=== PATIENT | female | born 1980 | race Caucasian/White ===

== ENCOUNTER 2017-11-26 08:50 | Inpatient (IN) | payer OTHER ==
[2017-11-26] VITALS (10 sets, daily range): BP systolic 135–154; BP diastolic 68–94; PULSE 83–109; RESP 18–26; TEMP 97.5–100.1; O2SAT 94–98
[~2017-11-26] VITALS: Ht 177.8 cm; Wt 108.7 kg
[~2017-11-26 08:50] MED LIST: GLUCTAB OR; LORTA5 PO; MACR100C PO; NOVO7030P2 SQ; POTA1080 PO; TUMS500C PO; [UNRECOGNIZED DRUG - CODE]
[2017-11-26] MEDS ORDERED: [UNRECOGNIZED DRUG - MIXTURE] ×2 (09:10)
[2017-11-26] MEDS ORDERED: RESP: ALBUTEROL 2.5 MG/IPRATROPIUM 0.5 MG NEB (SCH) NEB ONE (09:30)
--- NOTE | 2017-11-26 09:31 | PD ---
HPI Chief Complaint: Respiratory Symptoms Time Seen by Provider: 09:06 Travel History International Travel<30 days: No Contact w/Intl Traveler<30days: No Traveled to known affect area: No History of Present Illness HPI This 37-year-old female is complaining of cough and shortness of breath. She says the cough started as a mild smoker's type cough. It has gotten progressively worse and is now a hacking cough that is hard to stop. She has had fever. She never smoked. She has no history of asthma. She has a history of type 1 diabetes since the age of 28. 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 She is on BCOP, He has been on chemotherapy for the last 2 years. A month ago she developed pneumonia. She had an x-ray done at [facility] and then was treated at [facility]. She was on Zithromax and Levaquin. She has been told that she has some disease in her lung on the left side. Her last chemotherapy was last Sunday PFS Past Medical History Diabetes: Yes (Type 1) Patient Takes Glucophage: No Diminished Hearing: No Hypertension: No Thyroid Disease: Yes (NO MEDS AT THIS TIME) Tetanus Vaccination: Unknown ?: Not : 2 Para: 0 Miscarriage: 1 : 0 Dilation and Curettage (D&C): Yes (11/12) Past Surgical History Gynecologic Surgery: Yes (ectopic pregnacy removed with partial tube removed) Hysterectomy: Yes Pacemaker: No Other Surgery: Yes (LAPROSCOPIC 11/12 - LEFT BREAST LUMPECTOMY D/T 2015) Social History Alcohol Use: No Tobacco Use: No Substance Use: No Allergies-Medications (Allergen,Severity, Reaction): Coded Allergies: Sulfa (Sulfonamide Antibiotics) (Unverified Allergy, Severe, 11/26/17) cefepime (Unverified Allergy, Severe, 11/26/17) ceftaroline fosamil (Unverified Allergy, Severe, 11/26/17) ciprofloxacin (Unverified Allergy, Severe, 11/26/17) fentanyl (Verified Allergy, Severe, 11/26/17) penicillin G (Unverified Allergy, Severe, ANAPH., 11/26/17) Reported Meds & Prescriptions Reported Meds & Active Scripts Active Reported [[employer]] DIRECTED Review of Systems General / Constitutional: Positive: Fever Eyes: No: Diploplia, Blurred Vision HENT: No: Headaches, Vertigo Cardiovascular: No: Chest Pain or Discomfort, Palpitations Respiratory: Positive: Cough, Shortness of Breath Gastrointestinal: No: Nausea, Vomiting Genitourinary: No: Frequency, Dysuria Musculoskeletal: No: Myalgias Skin: No Rash, No Itching Neurologic: No: Weakness Psychiatric: No: Anxiety Endocrine: No: Heat Intolerance Hematologic/Lymphatic: No: Easy Bruising Physical Exam Narrative GENERAL: Well-developed female. She does have a harsh hacking cough SKIN: Focused skin assessment warm/dry. HEAD: Atraumatic. Normocephalic. EYES: Pupils equal and round. No scleral icterus. No injection or drainage. ENT: No nasal bleeding or discharge. Mucous membranes pink and moist. NECK: Trachea midline. No JVD. CARDIOVASCULAR: Regular rate and rhythm. No murmur appreciated. RESPIRATORY: accessory muscle use. There are scattered rhonchi Breath sounds equal bilaterally. GASTROINTESTINAL: Abdomen soft, non-tender, nondistended. Hepatic and splenic margins not palpable. MUSCULOSKELETAL: No obvious deformities. No clubbing. No cyanosis. No edema. NEUROLOGICAL: Awake and alert. No obvious cranial nerve deficits. Motor grossly within normal limits. Normal speech. PSYCHIATRIC: Appropriate mood and affect; insight and judgment normal. Data Data Last Documented VS Vital Signs Date Time Temp Pulse Resp B/P (MAP) Pulse Ox O2 Delivery O2 Flow Rate FiO2 11/26/17 09:44 24 96 Nasal Cannula 2.00 11/26/17 09:12 98.8 109 Orders Orders Sepsis Workup Initiated (11/26/17 ) Complete Blood Count With Diff (11/26/17 09:25) Comprehensive Metabolic Panel (11/26/17 09:25) Lactic Acid Sepsis Protocol (11/26/17 09:25) Urinalysis - C+S If Indicated (11/26/17 09:25) Influenzae A/B Antigen (11/26/17 09:25) Blood Culture (11/26/17 09:25) Chest, Single Ap (11/26/17 09:25) Blood Glucose (11/26/17 09:25) Ecg Monitoring (11/26/17 09:25) Iv Access Insert/Monitor (11/26/17 09:25) Oximetry (11/26/17 09:25) Oxygen Administration (11/26/17 09:25) Albuterol-Ipratropium Neb (Duoneb Neb) (11/26/17 09:30) Urine Culture (11/26/17 10:00) Sodium Chlor 0.9% 1000 Ml Inj (Ns 1000 M (11/26/17 10:45) Levofloxacin 750 Mg Premix Inj (Levaquin (11/26/17 10:45) Ct Thorax/ Chest W Iv Contrast (11/26/17 10:48) Iohexol 350 Inj (Omnipaque 350 Inj) (11/26/17 11:12) Labs Laboratory Tests Test 11/26/17 09:35 11/26/17 10:00 White Blood Count 5.4 TH/MM3 Red Blood Count 4.49 MIL/MM3 Hemoglobin 13.1 GM/DL Hematocrit 38.3 % Mean Corpuscular Volume 85.3 FL Mean Corpuscular Hemoglobin 29.2 PG Mean Corpuscular Hemoglobin Concent 34.2 % Red Cell Distribution Width 12.7 % Platelet Count 236 TH/MM3 Mean Platelet Volume 7.7 FL Neutrophils (%) (Auto) 68.4 % Lymphocytes (%) (Auto) 24.2 % Monocytes (%) (Auto) 6.1 % Eosinophils (%) (Auto) 0.8 % Basophils (%) (Auto) 0.5 % Neutrophils # (Auto) 3.8 TH/MM3 Lymphocytes # (Auto) 1.3 TH/MM3 Monocytes # (Auto) 0.3 TH/MM3 Eosinophils # (Auto) 0.0 TH/MM3 Basophils # (Auto) 0.0 TH/MM3 CBC Comment DIFF FINAL Differential Comment Blood Urea Nitrogen 6 MG/DL Creatinine 0.85 MG/DL Random Glucose 254 MG/DL Total Protein 7.7 GM/DL Albumin 3.3 GM/DL Calcium Level 8.7 MG/DL Alkaline Phosphatase 126 U/L Aspartate Amino Transf (AST/SGOT) 40 U/L Alanine Aminotransferase (ALT/SGPT) 57 U/L Total Bilirubin 0.6 MG/DL Sodium Level 133 MEQ/L Potassium Level 3.6 MEQ/L Chloride Level 99 MEQ/L Carbon Dioxide Level 23.4 MEQ/L Anion Gap 11 MEQ/L Estimat Glomerular Filtration Rate 75 ML/MIN Lactic Acid Level 1.9 mmol/L Urine Collection Type CATH Urine Color STRAW Urine Turbidity CLEAR Urine pH 6.5 Urine Specific [place] 1.006 Urine Protein NEG mg/dL Urine Glucose (UA) 250 mg/dL Urine Ketones 15 mg/dL Urine Occult Blood NEG Urine Nitrite NEG Urine Bilirubin NEG Urine Leukocyte Esterase SMALL Urine WBC 6-8 /hpf Urine WBC Clumps FEW Urine Bacteria OCC /hpf Microscopic Urinalysis Comment CATH-CULTURE IND MDM Medical Decision Making Medical Screen Exam Complete: Yes Emergency Medical Condition: Yes Medical Record Reviewed: Yes Differential Diagnosis Differential includes lymphoma, pneumonia, influenza Narrative Course Hemoglobin is 13 with a white count of 5.6. The patient's last chemotherapy was last Sunday so this white count may be going down. Chest x-ray shows left basilar density which may be pneumonia or lymphoma. She says that previously her lymphoma was only several millimeters in size in the lung. She is allergic to penicillin and cephalosporins. Cipro is listed as an allergy because she says it's a mild reaction and she has taken Levaquin well in the past. A CT scan will be done to see if he can differentiate this area of density as being lymphoma or pneumonia Diagnosis Primary Impression: Pneumonia Admitting Information Admitting Physician Requests: Admit Gustavo Leon MD Nov 26, 2017 09:31
[2017-11-26 09:57] LABS: AUTOMATED NEUTROPHIL # 3.8 TH/MM3 (1.8-7.7); BASOPHIL % 0.5 % (0.0-2.0); EOSINOPHIL % 0.8 % (0.0-4.0); HEMATOCRIT 38.3 % (35.0-46.0); HEMOGLOBIN 13.1 GM/DL (11.6-15.3); LYMPH % 24.2 % (9.0-44.0); LYMPHOCYTE # 1.3 TH/MM3 (1.0-4.8); MEAN CELL VOLUME 85.3 FL (80.0-100.0); MEAN CORPUSCULAR HEMOGLOBIN 29.2 PG (27.0-34.0); MEAN CORPUSCULAR HGB CONC 34.2 % (32.0-36.0); MEAN PLATELET VOLUME 7.7 FL (7.0-11.0); MONO % 6.1 % (0.0-8.0); MONOCYTE # 0.3 TH/MM3 (0-0.9); NEUT % 68.4 % (16.0-70.0); PLATELET COUNT 236 TH/MM3 (150-450); RED BLOOD COUNT 4.49 MIL/MM3 (4.00-5.30); RED CELL DISTRIBUTION WIDTH 12.7 % (11.6-17.2); WHITE BLOOD COUNT 5.4 TH/MM3 (4.0-11.0)
[2017-11-26 10:10] LABS: CHLORIDE 99 MEQ/L (98-107); SODIUM (NA) 133 MEQ/L (136-145)
[2017-11-26 10:13] LABS: ALBUMIN 3.3 GM/DL (3.4-5.0); CALCIUM 8.7 MG/DL (8.5-10.1)
[2017-11-26 10:14] LABS: BLOOD UREA NITROGEN 6 MG/DL (7-18); GLUCOSE,RANDOM 254 MG/DL (74-106)
[2017-11-26 10:17] LABS: BILIRUBIN, URINE NEG (NEG); BLOOD, URINE NEG (NEG); GLUCOSE,URINE 250 mg/dL (NEG); KETONE, URINE 15 mg/dL (NEG); NITRITE,URINE NEG (NEG); PH, URINE 6.5 (5.0-8.5); URINE LEUKOCYTE ESTERASE SMALL (NEG)
[2017-11-26 10:17] LABS: ALT (GPT) 57 U/L (10-53); AST (GOT) 40 U/L (15-37); BICARBONATE 23.4 MEQ/L (21.0-32.0); CREATININE 0.85 MG/DL (0.50-1.00); GLOMERULAR FILTRATION RATE 75 ML/MIN (>89)
[2017-11-26 10:18] LABS: TOTAL BILIRUBIN ADULT 0.6 MG/DL (0.2-1.0); TOTAL PROTEIN 7.7 GM/DL (6.4-8.2)
[2017-11-26 10:20] LABS: ALKALINE PHOSPHATASE 126 U/L (45-117)
[2017-11-26 10:32] LABS: URINE COLOR STRAW (YELLW/STRAW)
--- NOTE | 2017-11-26 10:34 | RADRPT ---
EXAM DATE/TIME: 11/26/2017 10:12 [facility] COMPARISON: No previous studies available for comparison. INDICATIONS : Cough MEDICAL HISTORY : None. SURGICAL HISTORY : None. ENCOUNTER: Initial ACUITY: 1 day PAIN SCORE: 0/10 LOCATION: chest FINDINGS: Portable AP view of the chest demonstrates cardiac silhouette size at the upper limits for normal. [place] ngs are underinflated and there is airspace opacity at the left lung base. No pleural effusion or pne umothorax is identified. The bones and soft tissues demonstrate no acute finding. CONCLUSION: Underinflation with left basilar airspace opacity, likely representing airspace consolidation and a p neumonia given the history of cough. Suggest followup chest x-ray to confirm resolution. Ramon Guzman MD on November 26, 2017 at 10:32 Board Certified Radiologist. This report was verified electronically.
[2017-11-26 10:36] LABS: WHITE BLOOD CELL CLUMPS FEW
[2017-11-26 10:37] LABS: BACTERIA, URINE OCC /hpf
[2017-11-26] MEDS ORDERED: LEVOFLOXACIN 750 MG PREMIX INJ 150 ML IV ONE (10:45)
[2017-11-26] MEDS ORDERED: SODIUM CHLOR 0.9% 1000 ML INJ 1,000 ML IV ONE (10:45)
[2017-11-26] MEDS ORDERED: IOHEXOL 350 MG/ML 10 ML VIAL (for RAD DIAG) IVCONTRAST ONE (11:12)
--- NOTE | 2017-11-26 11:46 | RADRPT ---
EXAM DATE/TIME: 11/26/2017 11:04 [facility] COMPARISON: CHEST SINGLE AP, November 26, 2017, 10:12. INDICATIONS : Cough. Abnormal chest xray. IV CONTRAST: 65 cc Omnipaque 350 (iohexol) IV RADIATION DOSE: 19.70 CTDIvol (mGy) MEDICAL HISTORY : None SURGICAL HISTORY : Hysterectomy. ENCOUNTER: Initial ACUITY: 1 day PAIN SCALE: 0/10 LOCATION: chest TECHNIQUE: Volumetric scanning of the chest was performed. Using automated exposure control and adjustment of t he mA and/or kV according to patient size, radiation dose was kept as low as reasonably achievable to obtain optimal diagnostic quality images. DICOM format image data is available electronically for review and comparison. Follow-up recommendations for detected pulmonary nodules are based at a minimum on nodule size and pa tient risk factors according to Fleischner Society Guidelines. FINDINGS: LUNGS: CT confirms the abnormal infiltrate in the left lower lobe as seen on plain film. Nodular densities i n the right perihilar distribution of the right upper lobe are nonspecific but could represent early infiltrate in this location as well.. PLEURA: There is no pleural thickening. Small bilateral effusions. MEDIASTINUM: The heart and great vessels demonstrate no acute abnormality. There is no mediastinal or hilar lymph adenopathy. AXILLAE: Within normal limits. No lymphadenopathy. SKELETAL: Within normal limits for patient age. MISCELLANEOUS: The visualized upper abdominal organs demonstrate diffusely diminished hepatic attenuation characteri stic of significant fatty infiltration. CONCLUSION: 1. Left basilar airspace consolidation and associated effusion characteristic of a pneumonic infiltra te. 2. Perihilar nodular densities in the basilar segment of the right upper lobe may represent early inf iltrate or inflammatory changes in this location as well. 3. Diffuse hepatic fatty infiltration. Frantz Dodge MD on November 26, 2017 at 11:40 Board Certified Radiologist. This report was verified electronically.
[2017-11-26] MEDS ORDERED: MORPHINE SULFATE 2 MG/ML INJ IV PUSH PRN ×2 (12:15)
[2017-11-26] MEDS ORDERED: GLUCAGON 1 MG/ML VIAL OTHER PRN (12:15)
[2017-11-26] MEDS ORDERED: SODIUM CHLORIDE 0.9% FLUSH 10 ML FLUSH IV FLUSH PRN ×2 (12:15)
[2017-11-26] MEDS ORDERED: oxyCODONE/ACETAMINOPHEN 5 MG/325 MG TAB PO PRN (12:15)
[2017-11-26] MEDS ORDERED: ZOLPIDEM TARTRATE 5 MG TAB PO PRN (12:15)
[2017-11-26] MEDS ORDERED: NALOXONE HCL 0.4 MG/ML AMP IV PUSH PRN (12:15)
[2017-11-26] MEDS ORDERED: DEXTROSE 50% IN WATER 50 ML VIAL(D50) IV PUSH PRN (12:15)
[2017-11-26] MEDS ORDERED: BISACODYL 10 MG SUPP RECTAL PRN (12:15)
[2017-11-26] MEDS ORDERED: LACTULOSE SYRUP 20 GM/30 ML CUP PO PRN (12:15)
[2017-11-26] MEDS ORDERED: ONDANSETRON HCL 4 MG/2 ML VIAL IVP PRN (13:00)
[2017-11-26] MEDS ORDERED: METOCLOPRAMIDE HCL 10 MG/2 ML VIAL IV PUSH PRN (13:00)
[2017-11-26] MEDS ORDERED: MAGNESIUM HYDROXIDE SUSP 30 ML CUP PO PRN (13:00)
[2017-11-26] MEDS ORDERED: ACETAMINOPHEN 325 MG TAB PO PRN (13:00)
[2017-11-26] MEDS: methylPREDNISolone SOD SUCC 40 MG/1 ML VIAL IV PUSH SCH ×2 (13:38→21:51)
[2017-11-26] MEDS: RESP: ALBUTEROL 2.5 MG/IPRATROPIUM 0.5 MG NEB (PRN) INH ×2 (15:00→20:03)
[2017-11-26] MEDS: SODIUM CHLOR 0.9% 1000 ML INJ 1,000 ML IV SCH ×2 (17:29→21:55)
[2017-11-26] MEDS: ACETAMINOPHEN 325 MG TAB PO PRN (17:30)
[2017-11-26] MEDS: ENOXAPARIN SODIUM 40 MG/0.4 ML SYRINGE SQ SCH (17:30)
[2017-11-26] MEDS: INSULIN ASPART SUPPLEMENTAL SCALE SQ SCH ×2 (17:31→21:50)
--- NOTE | 2017-11-26 17:46 | HHI.HP ---
[facility] Ramon Holguin MD Admission Diagnosis PNEUMONIA Diagnoses: (1) Diabetes mellitus Diagnosis: Secondary (2) Obesity Diagnosis: Secondary (3) Pneumonia Diagnosis: Principal (4) Lymphoma of breast Diagnosis: Secondary Chief Complaint: Respiratory symptoms Travel History International Travel<30 Days: No Contact w/Intl Traveler <30 Da: No Traveled to Known Affected Are: No History of Present Illness Patient is a 37-year-old female who presents with complaining of cough and shortness of breath. Patient states that the cough started as a mild smoker's type cough. It has gotten progressively worse and is now a hacking cough that is hard to stop. She has had fever. She denies any tobacco ever. She has no history of asthma. She has a history of type 1 diabetes since the age of 28 but has been not trying to control this since she was diagnosed with the cancer. 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 She is on BCOP, He has been on chemotherapy for the last 2 years. A month ago she developed pneumonia. She had an x-ray done at [facility] and then was treated at [facility]. She was on Zithromax and Levaquin. She has been told that she has some disease in her lung on the left side. Her last chemotherapy was last Sunday Patient presented to the emergency department. With the fevers and chills and therefore has been admitted for pneumonia. We will place her on Levaquin due to her multiple allergies. And start her on Mucinex as well as steroids and DuoNeb's Review of Systems Constitutional: COMPLAINS OF: Fatigue, Fever, Chills, DENIES: Diaphoretic episodes, Weight gain, Weight loss, Dizziness, Change in appetite, Night Sweats Endocrine: DENIES: Abnorml menstrual pattern, Heat/cold intolerance, Polydipsia , Polyuria, Polyphagia Eyes: DENIES: Blurred vision, Diplopia, Eye inflammation, Eye pain, Vision loss , Photosensitivity Ears, nose, mouth, throat: COMPLAINS OF: Nasal discharge, DENIES: Tinnitus, Hearing loss, Vertigo, Oral lesions, Throat pain, Hoarseness, Ear Pain, Running Nose Respiratory: COMPLAINS OF: Cough, Sputum production, Shortness of breath, DENIES: Apneas, Snoring, Wheezing Cardiovascular: COMPLAINS OF: Chest pain, DENIES: Palpitations, Syncope, Dyspnea on Exertion, PND, Lower Extremity Edema, Orthopnea, Claudication Gastrointestinal: DENIES: Abdominal pain, Black stools, Bloody stools, Constipation, Diarrhea, Nausea, Vomiting, Difficulty Swallowing Genitourinary: DENIES: Abnormal vaginal bleeding, Dysmenorrhea, Dyspareunia, Sexual dysfunction, Urinary frequency Musculoskeletal: DENIES: Joint pain, Muscle aches, Stiffness, Joint Swelling, Back pain Integumentary: DENIES: Abnormal pigmentation, Pruritus, Rash, Nail changes Hematologic/lymphatic: DENIES: Bruising, Lymphadenopathy Immunologic/allergic: DENIES: Eczema, Urticaria Neurologic: DENIES: Abnormal gait, Headache, Localized weakness, Paresthesias, Seizures, Speech Problems, Tremor, Poor Balance Psychiatric: DENIES: Anxiety, Confusion, Mood changes, Depression, Hallucinations, Agitation, Suicidal Ideation, Homicidal Ideation, Delusions Except as stated in HPI: all other systems reviewed are Neg Past Family Social History Past Medical History Breast lymphoma Diabetes mellitus type 1 uncontrolled Obesity Multiple orthopedic surgeries Past Surgical History Ectopic with tube removal Hysteroscopy Dilatation and curettage Bilateral ankle replacements with plates and screws Breast lumpectomy due to cancer Laparoscopy Reported Medications Reported Meds & Active Scripts Active Reported [[employer]] DIRECTED Allergies: Coded Allergies: Sulfa (Sulfonamide Antibiotics) (Unverified Allergy, Severe, 11/26/17) cefepime (Unverified Allergy, Severe, 11/26/17) ceftaroline fosamil (Unverified Allergy, Severe, 11/26/17) ciprofloxacin (Unverified Allergy, Severe, 11/26/17) fentanyl (Verified Allergy, Severe, 11/26/17) penicillin G (Unverified Allergy, Severe, ANAPH., 11/26/17) Active Ordered Medications Current Medications Albuterol/ Ipratropium (Duoneb Neb) 1 ampule ONCE ONCE NEB Last administered on 11/26/17at 09:37; Start 11/26/17 at 09:30; Stop 11/26/17 at 09:31; Status DC Sodium Chloride 1,000 ml @ 200 mls/hr Q5H ONCE IV Last administered on at 11:21; Start 11/26/17 at 10:45; Stop 11/26/17 at 15:44; Status DC Levofloxacin/ Dextrose 150 ml @ 100 mls/hr ONCE ONCE IV Last administered on 11/26/17at 11:21; Start 11/26/17 at 10:45; Stop 11/26/17 at 12:14; Status DC Iohexol (Omnipaque 350 Inj) 65 ml STK-MED ONCE IVCONTRAST Last administered on 11/26/17at 11:12; Start 11/26/17 at 11:12; Stop 11/26/17 at 11:13; Status DC Dextrose (D50w (Vial) Inj) 50 ml UNSCH PRN IV PUSH HYPOGLYCEMIA-SEE COMMENTS; Start 11/26/17 at 12:15 Glucagon (Glucagon Inj) 1 mg UNSCH PRN OTHER HYPOGLYCEMIA-SEE COMMENTS; Start 11/26/17 at 12:15 Insulin Aspart (NovoLOG SUPPLEMENTAL SCALE) 1 ACHS SLIDING SCALE SQ ; Start at 17:00 Sodium Chloride 1,000 ml @ 100 mls/hr Q10H IV ; Start 11/26/17 at 12:06 Sodium Chloride (NS Flush) 2 ml UNSCH PRN IV FLUSH FLUSH AFTER USING IV ACCESS ; Start 11/26/17 at 12:15; Stop 11/26/17 at 12:54; Status DC Sodium Chloride (NS Flush) 2 ml BID IV FLUSH ; Start 11/26/17 at 21:00; Stop at 21:00; Status DC Acetaminophen (Tylenol) 650 mg Q4H PRN PO TEMP > 100.4; Start 11/26/17 at 13:00 Ondansetron HCl (Zofran Inj) 4 mg Q6H PRN IVP NAUSEA OR VOMITING; Start at 13:00 Metoclopramide HCl (Reglan Inj) 5 mg Q6H PRN IV PUSH NAUSEA OR VOMITING; Start 11/26/17 at 13:00 Zolpidem Tartrate (Ambien) 5 mg HS PRN PO INSOMNIA; Start 11/26/17 at 12:15 Enoxaparin Sodium (Lovenox Inj) 40 mg Q24H SQ ; Start 11/26/17 at 15:00 Acetaminophen (Tylenol) 650 mg Q6H PRN PO PAIN SCALE 1 TO 2; Start 11/26/17 at 12:15 Oxycodone/ Acetaminophen (Percocet 5-325 Mg) 1 tab Q6H PRN PO PAIN SCALE 3 TO 5; Start 11/26/17 at 12:15 Oxycodone/ Acetaminophen (Percocet 10-325 Mg) 1 tab Q6H PRN PO PAIN SCALE 6 TO 10; Start 11/26/17 at 12:15 Morphine Sulfate (Morphine Inj) 2 mg Q3H PRN IV PUSH Pain 3-5; if unable to take PO; Start 11/26/17 at 12:15 Morphine Sulfate (Morphine Inj) 4 mg Q3H PRN IV PUSH Pain 6-10;if unable to take PO; Start 11/26/17 at 12:15 Naloxone HCl (Narcan Inj) 0.4 mg UNSCH PRN IV PUSH SEE LABEL COMMENTS; Start at 12:15 Senna/Docusate Sodium (Genesis-Colace) 1 tab BID PO ; Start 11/26/17 at 21:00 Magnesium Hydroxide (Milk Of Magnesia Liq) 30 ml Q12HR PRN PO Mild constipation ; Start 11/26/17 at 13:00 Sennosides (Senokot) 17.2 mg Q12HR PRN PO Moderate constipation; Start at 21:00 Bisacodyl (Dulcolax Supp) 10 mg DAILY PRN RECTAL SEVERE CONSITIPATION; Start at 12:15 Lactulose (Lactulose Liq) 30 ml DAILY PRN PO SEVERE CONSITIPATION; Start at 12:15 Sodium Chloride (NS Flush) 2 ml UNSCH PRN IV FLUSH FLUSH AFTER USING IV ACCESS ; Start 11/26/17 at 12:15 Sodium Chloride (NS Flush) 2 ml BID IV FLUSH ; Start 11/26/17 at 21:00 Levofloxacin/ Dextrose 150 ml @ 100 mls/hr Q24H IV ; Start 11/27/17 at 12:00 Albuterol/ Ipratropium (Duoneb Neb) 1 ampule Q4HR NEB PRN INH SHORTNESS OF BREATH Last administered on 11/26/17at 15:00; Start 11/26/17 at 13:00 Methylprednisolone Sodium Succinate (SoluMEDROL INJ) 40 mg Q12HR IV PUSH Last administered on 11/26/17at 13:38; Start 11/26/17 at 13:00 Insulin Detemir (Levemir Inj) 5 units Q12HR SQ ; Start 11/26/17 at 21:00; Status UNV Family History Denies any family history in mother or father Denies any cancers in the family Social History 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 Denies any tobacco denies any alcohol denies any illicits Physical Exam Vital Signs Vital Signs Date Time Temp Pulse Resp B/P (MAP) Pulse Ox O2 Delivery O2 Flow Rate FiO2 11/26/17 16:00 98.8 105 24 146/84 (104) 94 11/26/17 15:02 98 Nasal Cannula 2.00 11/26/17 14:35 100.1 90 149/94 (112) 96 11/26/17 13:54 87 20 140/78 (98) 97 11/26/17 09:44 24 96 Nasal Cannula 2.00 11/26/17 09:43 96 Nasal Cannula 2.00 11/26/17 09:12 98.8 109 22 154/85 (108) 96 Room Air 11/26/17 09:04 18 96 Room Air 11/26/17 08:50 98.7 96 26 135/81 (99) 96 Physical Exam GENERAL: This is a well-nourished, well-developed patient, in moderate distress. SKIN: No rashes, ecchymoses or lesions. Cool and dry. HEAD: Atraumatic. Normocephalic. No temporal or scalp tenderness. EYES: Pupils equal round and reactive. Extraocular motions intact. No scleral icterus. No injection or drainage. ENT: Nose without bleeding, purulent drainage or septal hematoma. Throat without erythema, tonsillar hypertrophy or exudate. Uvula midline. Airway patent. NECK: Trachea midline. No JVD or lymphadenopathy. Supple, nontender, no meningeal signs. CARDIOVASCULAR: Regular rate and rhythm without murmurs, gallops, or rubs. S1 and S2 no S3 or S4 RESPIRATORY: Coarse breath sounds with rhonchi's throughout all lung cosby some wheezes. Breath sounds equal bilaterally. GASTROINTESTINAL: Abdomen soft, non-tender, nondistended. No hepato-splenomegaly , or palpable masses. No guarding. Obese MUSCULOSKELETAL: Extremities without clubbing, cyanosis, or edema. No joint tenderness, effusion, or edema noted. No calf tenderness. Negative Homans sign bilaterally. NEUROLOGICAL: Awake and alert. Cranial nerves II through XII intact. Motor and sensory grossly within normal limits. Five out of 5 muscle strength in all muscle groups. Normal speech. Insight and judgment is good Mood and behaviors appropriate Laboratory Laboratory Tests Test 11/26/17 09:35 11/26/17 10:00 White Blood Count 5.4 Red Blood Count 4.49 Hemoglobin 13.1 Hematocrit 38.3 Mean Corpuscular Volume 85.3 Mean Corpuscular Hemoglobin 29.2 Mean Corpuscular Hemoglobin Concent 34.2 Red Cell Distribution Width 12.7 Platelet Count 236 Mean Platelet Volume 7.7 Neutrophils (%) (Auto) 68.4 Lymphocytes (%) (Auto) 24.2 Monocytes (%) (Auto) 6.1 Eosinophils (%) (Auto) 0.8 Basophils (%) (Auto) 0.5 Neutrophils # (Auto) 3.8 Lymphocytes # (Auto) 1.3 Monocytes # (Auto) 0.3 Eosinophils # (Auto) 0.0 Basophils # (Auto) 0.0 CBC Comment DIFF FINAL Differential Comment Blood Urea Nitrogen 6 Creatinine 0.85 Random Glucose 254 Total Protein 7.7 Albumin 3.3 Calcium Level 8.7 Alkaline Phosphatase 126 Aspartate Amino Transf (AST/SGOT) 40 Alanine Aminotransferase (ALT/SGPT) 57 Total Bilirubin 0.6 Sodium Level 133 Potassium Level 3.6 Chloride Level 99 Carbon Dioxide Level 23.4 Anion Gap 11 Estimat Glomerular Filtration Rate 75 Lactic Acid Level 1.9 Urine Collection Type CATH Urine Color STRAW Urine Turbidity CLEAR Urine pH 6.5 Urine Specific [place] 1.006 Urine Protein NEG Urine Glucose (UA) 250 Urine Ketones 15 Urine Occult Blood NEG Urine Nitrite NEG Urine Bilirubin NEG Urine Leukocyte Esterase SMALL Urine WBC 6-8 Urine WBC Clumps FEW Urine Bacteria OCC Microscopic Urinalysis Comment CATH-CULTURE IND Date/Time Source Procedure Growth Status 11/26/17 09:40 Blood Peripheral Aerobic Blood Culture Pending Received 11/26/17 09:40 Blood Peripheral Anaerobic Blood Culture Pending Received 11/26/17 09:45 Nasal Aspirate Influenza Types A,B Antigen (CHON) - Final NEGATIVE FOR FLU A AND B ANTIGEN.... Complete 11/26/17 10:00 Urine Catheterized Urine Urine Culture Pending Received Result Diagram: 11/26/17 0935 11/26/17 0935 Imaging Last Impressions Chest CT 11/26/17 1048 Signed Impressions: Service Date/Time: Sunday, November 26, 2017 11:04 - CONCLUSION: 1. Left basilar airspace consolidation and associated effusion characteristic of a pneumonic infiltrate. 2. Perihilar nodular densities in the basilar segment of the right upper lobe may represent early infiltrate or inflammatory changes in this location as well. 3. Diffuse hepatic fatty infiltration. Frantz Dodge MD Chest X-Ray 11/26/1725 Signed Impressions: Service Date/Time: Sunday, November 26, 2017 10:12 - CONCLUSION: Underinflation with left basilar airspace opacity, likely representing airspace consolidation and a pneumonia given the history of cough. Suggest followup chest x-ray to confirm resolution. MD Vinay Garcia VTE Risk Assessment Caprini VTE Risk Assessment: Mod/High Risk (score >= 2) Caprini Risk Assessment Model Point Value = 1 Point Value = 2 Point Value = 3 Point Value = 5 Age 41-60 Minor surgery BMI > 25 kg/m2 Swollen legs Varicose veins or History of unexplained or recurrent spontaneous Oral contraceptives or hormone replacement Sepsis (< 1 month) Serious lung disease, including pneumonia (< 1 month) Abnormal pulmonary function Acute myocardial infarction Congestive heart failure (< 1 month) History of inflammatory bowel disease Medical patient at bed rest Age 61-74 Arthroscopic surgery Major open surgery (> 45 min) Laparoscopic surgery (> 45 min) Malignancy Confined to bed (> 72 hours) Immobilizing plaster cast Central venous access Age >= 75 History of VTE Family history of VTE Factor V Leiden Prothrombin [id number] Lupus anticoagulant Anticardiolipin antibodies Elevated serum homocysteine Heparin-induced thrombocytopenia Other congenital or acquired thrombophilia Stroke (< 1 month) Elective arthroplasty Hip, pelvis, or leg fracture Acute spinal cord injury (< 1 month) Prophylaxis Regimen Total Risk Factor Score Risk Level Prophylaxis Regimen 0-1 Low Early ambulation 2 Moderate Order ONE of the following: *Sequential Compression Device (SCD) *Heparin 5000 units SQ BID 3-4 Higher Order ONE of the following medications: *Heparin 5000 units SQ TID *Enoxaparin/Lovenox 40 mg SQ daily (WT < 150 kg, CrCl > 30 mL/min) *Enoxaparin/Lovenox 30 mg SQ daily (WT < 150 kg, CrCl > 10-29 mL/min) *Enoxaparin/Lovenox 30 mg SQ BID (WT < 150 kg, CrCl > 30 mL/min) AND/OR *Sequential Compression Device (SCD) 5 or more Highest Order ONE of the following medications: *Heparin 5000 units SQ TID (Preferred with Epidurals) *Enoxaparin/Lovenox 40 mg SQ daily (WT < 150 kg, CrCl > 30 mL/min) *Enoxaparin/Lovenox 30 mg SQ daily (WT < 150 kg, CrCl > 10-29 mL/min) *Enoxaparin/Lovenox 30 mg SQ BID (WT < 150 kg, CrCl > 30 mL/min) AND *Sequential Compression Device (SCD) Assessment and Plan Assessment and Plan Breast lymphoma/cancer with recent chemotherapy treatment monitor blood counts and labs Pneumonia continue on Levaquin and Zithromax due to all her allergies continue on Mucinex twice a day continue on steroids continue on DuoNeb's Diabetes mellitus type 1 uncontrolled start on Levemir 5 units subcutaneous twice a day we'll probably need to dial up due to steroids Check a hemoglobin A1c Recent chemotherapy monitor labs Check thyroid panel due to history of thyroid disease and not taking any medications for this DVT prophylaxis with Lovenox Code Status Full code Discussed Condition With Emergency room physician and patient and her RN Physician Certification 2 Midnight Certification Type: Admission for Inpatient Services Order for Inpatient Services The services are ordered in accordance with Medicare regulations or non- Medicare payer requirements, as applicable. In the case of services not specified as inpatient-only, they are appropriately provided as inpatient services in accordance with the 2-midnight benchmark. Estimated LOS (days): 3 3 days is the estimated time the patient will need to remain in the hospital, assuming treatment plan goals are met and no additional complications. Post-Hospital Plan: Home Aly Guardado DO Nov 26, 2017 17:46
[2017-11-26] MEDS: AZITHROMYCIN 250 MG TAB PO SCH (18:12)
[2017-11-26] MEDS ORDERED: SENNOSIDES 8.6 MG TAB PO PRN (21:00)
[2017-11-26] MEDS: DOCUSATE SODIUM 50 MG/SENNA 8.6 MG TAB PO SCH (21:00)
[2017-11-26] MEDS ORDERED: SODIUM CHLORIDE 0.9% FLUSH 10 ML FLUSH IV FLUSH SCH (21:00)
[2017-11-26] MEDS: SODIUM CHLORIDE 0.9% FLUSH 10 ML FLUSH IV FLUSH SCH (21:50)
[2017-11-26] MEDS: INSULIN DETEMIR 100 UNITS/ML VIAL SQ SCH (21:50)
[2017-11-27] VITALS (10 sets, daily range): BP systolic 126–144; BP diastolic 70–98; PULSE 77–95; RESP 16–18; TEMP 96.1–97.6; O2SAT 92–98
[2017-11-27] MEDS: RESP: ALBUTEROL 2.5 MG/IPRATROPIUM 0.5 MG NEB (PRN) INH ×2 (04:01→07:44)
[2017-11-27] MEDS: ACETAMINOPHEN 325 MG TAB PO PRN ×2 (04:03→10:29)
[2017-11-27 07:11] LABS: BASOPHIL % 0.1 % (0.0-2.0); EOSINOPHIL % 0.4 % (0.0-4.0); HEMATOCRIT 37.7 % (35.0-46.0); HEMOGLOBIN 12.6 GM/DL (11.6-15.3); LYMPH % 25.2 % (9.0-44.0); MEAN CELL VOLUME 86.9 FL (80.0-100.0); MEAN CORPUSCULAR HEMOGLOBIN 28.9 PG (27.0-34.0); MEAN CORPUSCULAR HGB CONC 33.3 % (32.0-36.0); MEAN PLATELET VOLUME 8.2 FL (7.0-11.0); MONO % 2.6 % (0.0-8.0); MONOCYTE # 0.1 TH/MM3 (0-0.9); NEUT % 71.7 % (16.0-70.0); PLATELET COUNT 191 TH/MM3 (150-450); RED BLOOD COUNT 4.34 MIL/MM3 (4.00-5.30); RED CELL DISTRIBUTION WIDTH 11.9 % (11.6-17.2); WHITE BLOOD COUNT 4.1 TH/MM3 (4.0-11.0)
[2017-11-27 07:17] LABS: CHLORIDE 103 MEQ/L (98-107); SODIUM (NA) 135 MEQ/L (136-145)
[2017-11-27 07:28] LABS: GLUCOSE,RANDOM 320 MG/DL (74-106)
[2017-11-27 07:29] LABS: ALBUMIN 3.1 GM/DL (3.4-5.0); BICARBONATE 18.2 MEQ/L (21.0-32.0); MAGNESIUM 1.8 MG/DL (1.5-2.5)
[2017-11-27 07:30] LABS: BLOOD UREA NITROGEN 10 MG/DL (7-18); CALCIUM 8.8 MG/DL (8.5-10.1)
[2017-11-27 07:32] LABS: ALT (GPT) 65 U/L (10-53); AST (GOT) 53 U/L (15-37)
[2017-11-27 07:33] LABS: CREATININE 0.68 MG/DL (0.50-1.00); GLOMERULAR FILTRATION RATE 97 ML/MIN (>89); PHOSPHORUS 2.5 MG/DL (2.5-4.9); TOTAL BILIRUBIN ADULT 0.4 MG/DL (0.2-1.0)
[2017-11-27 07:34] LABS: TOTAL PROTEIN 7.9 GM/DL (6.4-8.2)
[2017-11-27 07:35] LABS: ALKALINE PHOSPHATASE 122 U/L (45-117)
[2017-11-27] MEDS: INSULIN ASPART SUPPLEMENTAL SCALE SQ SCH ×4 (08:00→22:16)
[2017-11-27] MEDS: SODIUM CHLOR 0.9% 1000 ML INJ 1,000 ML IV SCH ×2 (08:06→22:10)
[2017-11-27] MEDS: DOCUSATE SODIUM 50 MG/SENNA 8.6 MG TAB PO SCH ×2 (09:00→21:00)
[2017-11-27] MEDS: SODIUM CHLORIDE 0.9% FLUSH 10 ML FLUSH IV FLUSH SCH ×2 (09:31→22:07)
[2017-11-27] MEDS: methylPREDNISolone SOD SUCC 40 MG/1 ML VIAL IV PUSH SCH ×2 (09:32→22:07)
[2017-11-27] MEDS: RESP: ALBUTEROL 2.5 MG/IPRATROPIUM 0.5 MG NEB (SCH) NEB ×3 (09:45→19:46)
[2017-11-27] MEDS ORDERED: RESP: ACETYLCYSTEINE 20% 10 ML NEB NEB PRN (09:45)
[2017-11-27] MEDS: INSULIN DETEMIR 100 UNITS/ML VIAL SQ SCH ×2 (09:57→22:06)
[2017-11-27 10:04] LABS: FREE T4 1.14 NG/DL (0.76-1.46)
[2017-11-27] MEDS ORDERED: RESP: ACETYLCYSTEINE 20% 30 ML NEB NEB PRN (11:15)
[2017-11-27] MEDS: RESP: ACETYLCYSTEINE 20% 30 ML NEB NEB PRN ×2 (13:31→19:46)
--- NOTE | 2017-11-27 14:31 | HHI.PR ---
Subjective Remarks Nursing reports that the patient is still coughing a lot. Patient herself says she feels just a little bit better than yesterday, cough is indeed hurting her chest a lot. Says that she was diagnosed with breast cancer which did spread to her left lung. Objective Vital Signs Date Time Temp Pulse Resp B/P (MAP) Pulse Ox O2 Delivery O2 Flow Rate FiO2 11/27/17 13:33 98 21 11/27/17 09:30 96.1 95 18 138/85 (102) 94 11/27/17 07:45 97 21 11/27/17 04:00 97.0 90 18 137/84 (101) 92 11/27/17 00:00 96.2 80 16 126/70 (88) 95 11/26/17 20:20 83 11/26/17 20:05 96 21 11/26/17 20:00 97.5 85 18 151/93 (112) 96 11/26/17 16:00 98.8 105 24 146/84 (104) 94 11/26/17 15:02 98 Nasal Cannula 2.00 11/26/17 14:35 100.1 90 149/94 (112) 96 I/O 11/26/17 11/26/17 11/26/17 11/27/17 11/27/17 11/27/17 06:59 14:59 22:59 06:59 14:59 22:59 Intake Total 150 ml 1480 ml 2104 ml Balance 150 ml 1480 ml 2104 ml Intake Oral 480 ml 680 ml IV Total 150 ml 1000 ml 1424 ml # Voids 2 4 # Bowel Movements 0 Result Diagram: 11/27/17 0500 11/27/17 0500 Imaging Last Impressions Chest CT 11/26/17 1048 Signed Impressions: Service Date/Time: Sunday, November 26, 2017 11:04 - CONCLUSION: 1. Left basilar airspace consolidation and associated effusion characteristic of a pneumonic infiltrate. 2. Perihilar nodular densities in the basilar segment of the right upper lobe may represent early infiltrate or inflammatory changes in this location as well. 3. Diffuse hepatic fatty infiltration. Frantz Dodge MD Chest X-Ray 11/26/17 0936 Signed Impressions: Service Date/Time: Sunday, November 26, 2017 10:12 - CONCLUSION: Underinflation with left basilar airspace opacity, likely representing airspace consolidation and a pneumonia given the history of cough. Suggest followup chest x-ray to confirm resolution. Ramon Guzman MD Objective Remarks Diminished breath sounds bilaterally with substantial crackles rales and some mild wheezing Appears to be in acute distress during coughing spells which appear to be pretty moderate to severe, otherwise has no conversive dyspnea A/P Assessment and Plan Pneumonia in immunocompromised patient with minimal improvement since yesterday with multiple antibiotic allergies - continue on Levaquin and Zithromax due to all her allergies; will consult pulmonology for candidacy for BAL given minimal improvement with substantial infiltrate noted on CT scan - consulting ID for assistance w/ abx selection given allergies/adverse effects - continue on Mucinex twice a day - I will taper steroids, continue on DuoNeb's, adding on Mucomyst Breast CA - Recent chemotherapy monitor labs Diabetes mellitus type 1 uncontrolled - Levemir 5 units subcutaneous twice a day - LDSS new UTI - G- bre, continue Levaquin, streamline abx as warranted DVT prophylaxis with Lovenox Rashid Castellon MD Nov 27, 2017 14:31
[2017-11-27] MEDS: ENOXAPARIN SODIUM 40 MG/0.4 ML SYRINGE SQ SCH (15:22)
[2017-11-27] MEDS: LEVOFLOXACIN 750 MG PREMIX INJ 150 ML IV SCH (15:22)
[2017-11-27 16:17] LABS: HEMOGLOBIN A1C 9.6 % (4.3-6.0)
--- NOTE | 2017-11-27 16:38 | PD.ID.CON ---
History of Present Illness Service ID Consult Requested By Dr Stevenson Reason for Consult PNA , inmmunosupprssed and multiple allergies Primary Care Physician Ramon Holguin MD Diagnoses: History of Present Illness pt is a 37 yo female with L breast lymphoma, undergoing chemo s/p her chemo dose on sunday and on developped SOB and dry cough which keepp getting worse and her fever was up to 100.1 Her ANC is good CT showed L basilar infiltrate SHe has multiple abx allergies including PCN and cephalosporins She also had a mild rash aw cipro use but apparently Her urine clx is growing a GNB but pt denies any disuria, or other urinary smx Pt is on RA but desdts with walking Past Family Social History Allergies: Coded Allergies: Sulfa (Sulfonamide Antibiotics) (Unverified Allergy, Severe, 11/26/17) cefepime (Unverified Allergy, Severe, 11/26/17) ceftaroline fosamil (Unverified Allergy, Severe, 11/26/17) ciprofloxacin (Unverified Allergy, Severe, 11/26/17) fentanyl (Verified Allergy, Severe, 11/26/17) penicillin G (Unverified Allergy, Severe, ANAPH., 11/26/17) Active Ordered Medications Medications where reviewed in EMR Antibiotics Include: azithro lavequine Physical Exam Vital Signs Vital Signs Date Time Temp Pulse Resp B/P (MAP) Pulse Ox O2 Delivery O2 Flow Rate FiO2 11/27/17 13:33 98 21 11/27/17 11:29 20 11/27/17 09:30 96.1 95 18 138/85 (102) 94 11/27/17 07:45 97 21 11/27/17 04:00 97.0 90 18 137/84 (101) 92 11/27/17 00:00 96.2 80 16 126/70 (88) 95 11/26/17 20:20 83 11/26/17 20:05 96 21 11/26/17 20:00 97.5 85 18 151/93 (112) 96 Physical Exam CONSTITUTIONAL/GENERAL: This is an adequately nourished patient, in mild distress 2/2 constant coughing TUBES/LINES/DRAINS: SKIN: No jaundice, rashes, or lesions. Skin temperature appropriate. Not diaphoretic. HEAD: Atraumatic. Normocephalic. EYES: Pupils equal and round and reactive. Extraocular motions intact. No scleral icterus. No injection or drainage. Fundi not examined. ENT: Hearing grossly normal. Nose without bleeding or purulent drainage. Throat without visible erythema, exudates, masses, or lesions. NECK: Trachea midline. Supple, nontender. CARDIOVASCULAR: Regular rate and rhythm without murmurs, gallops, or rubs. No JVD. Peripheral pulses symmetric. RESPIRATORY/CHEST: Symmetric, unlabored respirations. Clear to auscultation. Breath sounds equal bilaterally. Scattered rhonchi. GASTROINTESTINAL: Abdomen soft, non-tender, nondistended. No hepato-splenomegaly , or palpable masses. No guarding. Bowel sounds present. GENITOURINARY: Without palpable bladder distension. MUSCULOSKELETAL: Extremities without clubbing, cyanosis, or edema. No joint tenderness or effusion noted. No calf tenderness. No mottling or clubbing. LYMPHATICS: No palpable cervical or supraclavicular adenopathy. NEUROLOGICAL: Awake and alert. Motor and sensory grossly within normal limits. Follows commands. Cognitively sharp. Moves all extremities. PSYCHIATRIC: No obvious anxiety/depression. no apparent hallucinations or other psychotic thought process. Laboratory Laboratory Tests Test 11/27/17 05:00 White Blood Count 4.1 Red Blood Count 4.34 Hemoglobin 12.6 Hematocrit 37.7 Mean Corpuscular Volume 86.9 Mean Corpuscular Hemoglobin 28.9 Mean Corpuscular Hemoglobin Concent 33.3 Red Cell Distribution Width 11.9 Platelet Count 191 Mean Platelet Volume 8.2 Neutrophils (%) (Auto) 71.7 Lymphocytes (%) (Auto) 25.2 Monocytes (%) (Auto) 2.6 Eosinophils (%) (Auto) 0.4 Basophils (%) (Auto) 0.1 Neutrophils # (Auto) 3.0 Lymphocytes # (Auto) 1.0 Monocytes # (Auto) 0.1 Eosinophils # (Auto) 0.0 Basophils # (Auto) 0.0 CBC Comment DIFF FINAL Differential Comment Blood Urea Nitrogen 10 Creatinine 0.68 Random Glucose 320 Total Protein 7.9 Albumin 3.1 Calcium Level 8.8 Phosphorus Level 2.5 Magnesium Level 1.8 Alkaline Phosphatase 122 Aspartate Amino Transf (AST/SGOT) 53 Alanine Aminotransferase (ALT/SGPT) 65 Total Bilirubin 0.4 Sodium Level 135 Potassium Level 3.7 Chloride Level 103 Carbon Dioxide Level 18.2 Anion Gap 14 Estimat Glomerular Filtration Rate 97 Free Thyroxine 1.14 Thyroid Stimulating Hormone 3rd Gen 0.604 Date/Time Source Procedure Growth Status 11/26/17 09:40 Blood Peripheral Aerobic Blood Culture - Preliminary NO GROWTH IN 1 DAY Resulted 11/26/17 09:40 Blood Peripheral Anaerobic Blood Culture - Preliminary NO GROWTH IN 1 DAY Resulted 11/26/17 09:45 Nasal Aspirate Influenza Types A,B Antigen (CHON) - Final NEGATIVE FOR FLU A AND B ANTIGEN.... Complete 11/26/17 10:00 Urine Catheterized Urine Urine Culture - Preliminary Gram Negative Sourav Resulted Result Diagram: 11/27/17 0500 11/27/17 0500 Imaging Last Impressions Chest CT 11/26/17 1048 Signed Impressions: Service Date/Time: Sunday, November 26, 2017 11:04 - CONCLUSION: 1. Left basilar airspace consolidation and associated effusion characteristic of a pneumonic infiltrate. 2. Perihilar nodular densities in the basilar segment of the right upper lobe may represent early infiltrate or inflammatory changes in this location as well. 3. Diffuse hepatic fatty infiltration. Frantz Dodge MD Chest X-Ray 11/26/17924 Signed Impressions: Service Date/Time: Sunday, November 26, 2017 10:12 - CONCLUSION: Underinflation with left basilar airspace opacity, likely representing airspace consolidation and a pneumonia given the history of cough. Suggest followup chest x-ray to confirm resolution. Ramon Guzman MD Assessment and Plan Assessment and Plan LLL infiltrate sugg of PNA Immunosuppressed, lymphoma (ipsilateral breast, on cjemo) Stable, remains on RA cont current abx fu CXR sputum clx resp panel Leg/penumococcus Betzy Ling MD Nov 27, 2017 16:38
[2017-11-27] MEDS: oxyCODONE/ACETAMINOPHEN 10 MG/325 MG TAB PO PRN (18:00)
[2017-11-27] MEDS: AZITHROMYCIN 250 MG TAB PO SCH (18:01)
--- NOTE | 2017-11-27 19:36 | MB ---
cc: Kitty Tang MD DATE OF CONSULT: 11/27/2017 REASON FOR CONSULTATION: Pneumonia. HISTORY OF PRESENT ILLNESS: Mrs. 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 Underwent a CT scan revealing a left basilar pneumonia. Patient hospitalized for same. She has no hemoptysis. No history of TB or previous industrial exposure. PAST MEDICAL HISTORY: Left breast lymphoma. ALLERGIES: SULFA, CEFEPIME, CEFTRIAXONE, CIPROFLOXACIN, FENTANYL, PENICILLIN. FAMILY HISTORY: Noncontributory. SOCIAL HISTORY: Does not smoke, does not drink. No TB. No industrial exposure. CURRENT MEDICATIONS: Include insulin sliding scale, levofloxacin, nebulizer ipratropium, Zithromax, enoxaparin prophylaxis, Tylenol p.r.n., Reglan, Solu-Medrol intravenous 40 mg every 12 hours, Ambien as needed, morphine, oxycodone p.r.n. SYSTEMS REVIEW: Twelve-point of review of systems as per HPI and past history, otherwise negative. PHYSICAL EXAMINATION: GENERAL: Patient is alert. VITAL SIGNS: Temperature 97 degrees Fahrenheit, respiration 20, pulse 84, blood pressure 138/80, oxygen saturation 94% room air. HEENT: Unremarkable. Eyes without icterus. NECK: Without adenopathy or thyroid enlargement. CHEST: A few rhonchi left base. CARDIAC: PMI not appreciated. S1, S2 audible, no murmur, no rub. ABDOMEN: Lax bowel sounds audible. EXTREMITIES: No clubbing, cyanosis, or edema. SKIN: Normal. No lymphadenopathy. LABORATORY DATA: White count 4.1, hemoglobin 12.6, hematocrit 37, platelets at 191,000. BUN 10, creatinine 0.7, sodium 135, potassium 3.7. CT chest: Left basilar pneumonia and multiple perihilar nodular densities on the right, probably inflammatory. IMPRESSION: 1. Pneumonia. 2. Immune compromise. Patient on chemotherapy for lymphoma. PLAN: Patient is on antibiotic therapy, followed by infectious disease for same. She does not require oxygen therapy at present. Nebulized bronchodilators will be continued. Chest x-ray will be followed and depending on progress proceed accordingly. I do thank you for asking me to partake in Mrs. Falk care. Kitty Tang MD WWW/ , 07:09 PM , 07:35 PM
[2017-11-27] MEDS ORDERED: RESP: ALBUTEROL 2.5 MG/IPRATROPIUM 0.5 MG NEB (PRN) NEB (20:45)
[2017-11-28] VITALS (7 sets, daily range): BP systolic 126–148; BP diastolic 70–85; PULSE 63–92; RESP 18–20; TEMP 96.3–97.4; O2SAT 93–97
[2017-11-28] MEDS: SODIUM CHLOR 0.9% 1000 ML INJ 1,000 ML IV SCH ×3 (04:06→22:12)
[2017-11-28] MEDS: RESP: ACETYLCYSTEINE 20% 30 ML NEB NEB PRN (07:35)
[2017-11-28] MEDS: RESP: ALBUTEROL 2.5 MG/IPRATROPIUM 0.5 MG NEB (SCH) NEB ×3 (07:35→20:38)
[2017-11-28] MEDS: methylPREDNISolone SOD SUCC 40 MG/1 ML VIAL IV PUSH SCH ×2 (08:16→22:05)
[2017-11-28] MEDS: SODIUM CHLORIDE 0.9% FLUSH 10 ML FLUSH IV FLUSH SCH ×2 (08:16→22:06)
[2017-11-28] MEDS: oxyCODONE/ACETAMINOPHEN 10 MG/325 MG TAB PO PRN ×2 (08:16→14:42)
[2017-11-28] MEDS: INSULIN DETEMIR 100 UNITS/ML VIAL SQ SCH ×2 (08:17→22:06)
[2017-11-28] MEDS: INSULIN ASPART SUPPLEMENTAL SCALE SQ SCH ×4 (08:17→22:11)
[2017-11-28] MEDS: DOCUSATE SODIUM 50 MG/SENNA 8.6 MG TAB PO SCH ×2 (08:17→21:00)
[2017-11-28] MEDS: LEVOFLOXACIN 750 MG PREMIX INJ 150 ML IV SCH (12:23)
[2017-11-28] MEDS: ENOXAPARIN SODIUM 40 MG/0.4 ML SYRINGE SQ SCH (14:37)
[2017-11-28] MEDS: AZITHROMYCIN 250 MG TAB PO SCH (17:03)
--- NOTE | 2017-11-28 18:07 | HHI.PR ---
Subjective Remarks Nursing denies any deterioration since last night. Patient says that she feels somewhat better than yesterday, cough is a little bit better but says she has not been able to expectorate any sputum. Objective Vital Signs Date Time Temp Pulse Resp B/P (MAP) Pulse Ox O2 Delivery O2 Flow Rate FiO2 11/28/17 15:50 97.1 85 20 126/73 (90) 94 11/28/17 11:50 96.3 72 20 133/77 (95) 94 11/28/17 07:50 96.7 63 20 148/81 (103) 96 11/28/17 07:38 97 21 11/28/17 00:00 96.7 80 18 136/85 (102) 93 11/27/17 20:00 97.6 85 18 144/98 (113) 93 11/27/17 19:45 96 21 I/O 11/27/17 11/27/17 11/27/17 11/28/17 11/28/17 11/28/17 07:00 15:00 23:00 07:00 15:00 23:00 Intake Total 2104 ml 1200 ml 1754 ml 1049 ml Balance 2104 ml 1200 ml 1754 ml 1049 ml Intake Oral 680 ml 1200 ml 580 ml IV Total 1424 ml 1174 ml 1049 ml # Voids 4 3 3 # Bowel Movements 0 0 Result Diagram: 11/27/17 0500 11/27/17 0500 Objective Remarks No coughing spells noted today Junky breath sounds, unlabored resp effort A/P Assessment and Plan Pneumonia in immunocompromised patient with minimal improvement since yesterday with multiple antibiotic allergies - continue on Levaquin and Zithromax due to all her allergies; will consult pulmonology for candidacy for BAL given minimal improvement with substantial infiltrate noted on CT scan - consulting ID for assistance w/ abx selection given allergies/adverse effects - continue on Mucinex twice a day - I will taper steroids, continue on DuoNeb's, continue Mucomyst - Blood cultures negative Breast CA - Recent chemotherapy monitor labs Diabetes mellitus type 1 uncontrolled - Levemir 5 units subcutaneous twice a day - LDSS new UTI - pansensitive e.coli, tx as above DVT prophylaxis with Lovenox Rashid Castellon MD Nov 28, 2017 18:07
[2017-11-29] VITALS: BP 142/83; PULSE 79; RESP 20; TEMP 97.1; O2SAT 95
[2017-11-29] MEDS: RESP: ALBUTEROL 2.5 MG/IPRATROPIUM 0.5 MG NEB (SCH) NEB ×2 (07:16→13:44)
[2017-11-29 07:17] VITALS: O2SAT 96
[2017-11-29 07:50] VITALS: BP 138/88; PULSE 71; RESP 20; TEMP 96.7; O2SAT 96
[2017-11-29] MEDS: INSULIN ASPART SUPPLEMENTAL SCALE SQ SCH ×2 (08:42→12:26)
[2017-11-29] MEDS: SODIUM CHLORIDE 0.9% FLUSH 10 ML FLUSH IV FLUSH SCH (08:42)
[2017-11-29] MEDS: DOCUSATE SODIUM 50 MG/SENNA 8.6 MG TAB PO SCH (08:43)
[2017-11-29] MEDS: SODIUM CHLOR 0.9% 1000 ML INJ 1,000 ML IV SCH (08:43)
[2017-11-29] MEDS: methylPREDNISolone SOD SUCC 40 MG/1 ML VIAL IV PUSH SCH (08:43)
[2017-11-29] MEDS: INSULIN DETEMIR 100 UNITS/ML VIAL SQ SCH (08:43)
[2017-11-29 11:50] VITALS: BP 142/84; PULSE 66; RESP 20; TEMP 96.5; O2SAT 94
[2017-11-29] MEDS: LEVOFLOXACIN 750 MG PREMIX INJ 150 ML IV SCH (12:26)
[2017-11-29] MEDS: oxyCODONE/ACETAMINOPHEN 10 MG/325 MG TAB PO PRN (12:29)
--- NOTE | 2017-11-29 12:31 | RADRPT ---
EXAM DATE/TIME: 11/29/2017 12:10 [place] COMPARISON: No previous studies available for comparison. INDICATIONS : Follow-up pneumonia. MEDICAL HISTORY : None. SURGICAL HISTORY : Hysterectomy. ENCOUNTER: Initial ACUITY: 4 - 6 days PAIN SCORE: 0/10 LOCATION: Bilateral chest FINDINGS: The lungs are hypoaerated. Significant airspace disease is identified in the left base posteriorly. Heart and mediastinal structures are unremarkable. Osseous structures are intact. CONCLUSION: Left lower lobe airspace disease. Hypoaerated lungs. No other significant abnormality. Juan Tobar MD on November 29, 2017 at 12:28 Board Certified Radiologist. This report was verified electronically.
--- NOTE | 2017-11-29 14:45 | HHI.PR ---
Subjective Remarks ALERT STILL HAS COUGH NO SOB CHEST XRAY , STABLE INFILTRATE Objective Vital Signs Date Time Temp Pulse Resp B/P (MAP) Pulse Ox O2 Delivery O2 Flow Rate FiO2 11/29/17 13:45 21 11/29/17 11:50 96.5 66 20 142/84 (103) 94 11/29/17 07:50 96.7 71 20 138/88 (105) 96 11/29/17 07:17 96 21 11/29/17 00:00 97.1 79 20 142/83 (102) 95 11/28/17 20:37 96 21 11/28/17 20:00 97.4 92 20 133/70 (91) 95 11/28/17 15:50 97.1 85 20 126/73 (90) 94 I/O 11/28/17 11/28/17 11/28/17 11/29/17 11/29/17 11/29/17 07:00 15:00 23:00 07:00 15:00 23:00 Intake Total 1754 ml 1049 ml 1522 ml 1142 ml Balance 1754 ml 1049 ml 1522 ml 1142 ml Intake Oral 580 ml 1522 ml IV Total 1174 ml 1049 ml 1142 ml # Voids 3 6 # Bowel Movements 0 0 Result Diagram: 11/27/17 0500 11/27/17 0500 Objective Remarks GENERAL: SKIN: Warm and dry. HEAD: Atraumatic. Normocephalic. EYES: Pupils equal and round. No scleral icterus. No injection or drainage. ENT: No nasal bleeding or discharge. Mucous membranes pink and moist. NECK: Trachea midline. No JVD. CARDIOVASCULAR: Regular rate and rhythm. RESPIRATORY: No accessory muscle use. ACATTERD RONCHI to auscultation. Breath sounds equal bilaterally. GASTROINTESTINAL: Abdomen soft, non-tender, nondistended. Hepatic and splenic margins not palpable. MUSCULOSKELETAL: Extremities without clubbing, cyanosis, or edema. No obvious deformities. NEUROLOGICAL: Awake and alert. No obvious cranial nerve deficits. Motor grossly within normal limits. Five out of 5 muscle strength in the arms and legs. Normal speech. PSYCHIATRIC: Appropriate mood and affect; insight and judgment normal. Assessment and Plan Assessment and Plan ASTHMATIC BRONCHITIS PNA CLINICALY MUCH BETTER PLAN OK FOR D/C ON PO ANTIBX TAPERING PREDNISONE OFFICE 1 WEEK Kitty Tang MD Nov 29, 2017 14:45
[2017-11-29] MEDS ORDERED: AZIT250T3 PO (14:56)
[2017-11-29] MEDS ORDERED: LEVO750T3 PO (14:56)
[2017-11-29] MEDS ORDERED: PRED10 PO (14:56)
[2017-11-29] MEDS ORDERED: SYMB80AE INH (14:56)
[2017-11-29] MEDS ORDERED: ALBUAER3 INH (14:56)
[2017-11-29] MEDS ORDERED: LEVEMIR SQ (14:59)
[2017-11-29] MEDS ORDERED: AZITHROMYCIN INJ 500 MG in SODIUM CHLOR 0.9% 250 ML INJ 250 ML IV ONE (15:00)
--- NOTE | 2017-11-29 15:01 | HHI.DCPOC ---
Discharge Care Plan Diagnosis: (1) Pneumonia (2) Diabetes mellitus Additional Problems Check your sugars TID premeals and continue taking her prescribed Levemir dose until your blood sugar reaches 120 at which point contact your PCP for further dosing instructions. Goals to Promote Your Health * To prevent worsening of your condition and complications * To maintain your health at the optimal level Directions to Meet Your Goals Take your medications as prescribed Follow your dietary instruction Follow activity as directed Keep your appointments as scheduled Take your immunizations and boosters as scheduled If your symptoms worsen call your PCP, if no PCP go to Urgent Care Center or Emergency Room Smoking is Dangerous to Your Health. Avoid second hand smoke Call the 24-hour hour crisis hotline for domestic abuse at Rashid Castellon MD Nov 29, 2017 15:01
--- NOTE | 2017-11-29 15:16 | HHI.DS ---
Discharge Summary Admission Date Nov 26, 2017 at 12:06 Discharge Date: Nov 29, 2017 Admitting Diagnosis PNEUMONIA (1) Diabetes mellitus ICD Code: E11.9 - Type 2 diabetes mellitus without complications Diagnosis: Secondary (2) Obesity ICD Code: E66.9 - Obesity, unspecified Diagnosis: Secondary (3) Pneumonia ICD Code: J18.9 - Pneumonia, unspecified organism Diagnosis: Principal Status: Acute (4) Lymphoma of breast ICD Code: C85.99 - Non-Hodgkin lymphoma, unspecified, extranodal and solid organ sites Diagnosis: Secondary Procedures none Brief History - From Admission Patient is a 37-year-old female who presents with complaining of cough and shortness of breath. Patient states that the cough started as a mild smoker's type cough. It has gotten progressively worse and is now a hacking cough that is hard to stop. She has had fever. She denies any tobacco ever. She has no history of asthma. She has a history of type 1 diabetes since the age of 28 but has been not trying to control this since she was diagnosed with the cancer. She has been treated at [facility] for primary breast lymphoma. She is on BCOP, He has been on chemotherapy for the last 2 years. A month ago she developed pneumonia. She had an x-ray done at [facility] and then was treated at [facility]. She was on Zithromax and Levaquin. She has been told that she has some disease in her lung on the left side. Her last chemotherapy was last Sunday Patient presented to the emergency department. With the fevers and chills and therefore has been admitted for pneumonia. We will place her on Levaquin due to her multiple allergies. And start her on Mucinex as well as steroids and DuoNeb's CBC/BMP: 11/27/17 0500 11/27/17 0500 Significant Findings Laboratory Tests Test 11/27/17 05:00 Neutrophils (%) (Auto) 71.7 % (16.0-70.0) Random Glucose 320 MG/DL (74-106) Albumin 3.1 GM/DL (3.4-5.0) Alkaline Phosphatase 122 U/L (45-117) Aspartate Amino Transf (AST/SGOT) 53 U/L (15-37) Alanine Aminotransferase (ALT/SGPT) 65 U/L (10-53) Sodium Level 135 MEQ/L (136-145) Carbon Dioxide Level 18.2 MEQ/L (21.0-32.0) Hemoglobin A1c 9.6 % (4.3-6.0) Imaging Last Impressions Chest X-Ray 11/29/17 0000 Signed Impressions: Service Date/Time: November 12:10 - CONCLUSION: Left lower lobe airspace disease. Hypoaerated lungs. No other significant abnormality. Juan Tobar MD Chest CT 11/26/17 1048 Signed Impressions: Service Date/Time: Sunday, November 26, 2017 11:04 - CONCLUSION: 1. Left basilar airspace consolidation and associated effusion characteristic of a pneumonic infiltrate. 2. Perihilar nodular densities in the basilar segment of the right upper lobe may represent early infiltrate or inflammatory changes in this location as well. 3. Diffuse hepatic fatty infiltration. Frantz Dodge MD PE at Discharge Mild rales and rhonchi heard in the left lung field, clear on the right, unlabored breathing, no acute distress, no cyanosis, on room air Hospital Course Patient was admitted, started on antibiotics and steroids and DuoNeb treatments. Infectious disease was consulted given the patient's immunocompromised status and her multiple antibiotic allergies. Pulmonology had also been consulted. Patient's respiratory status has significantly improved. She was reevaluated by pulmonology and cleared for discharge. Patient was counseled extensively on the importance of appropriate insulin administration to help try to control her sugars, she understands that her sugars will become much more controlled once she is successfully tapered off of her outpatient oral steroids. She had already secured a follow-up appointment with her primary care doctor within the coming days of discharge. Patient has been maximal benefit from hospitalization and is clinically stable for discharge. Pt Condition on Discharge: Good Discharge Time: > 30 minutes Discharge Instructions Follow up Referrals: PCP Follow-up - 1 Week Pulmonology - 1 Week with Kitty Tang MD New Medications: Albuterol 8.5 GM Inh (Proair Hfa 8.5 GM Inh) 90 Mcg/Act Aer 2 PUFF INH Q4-6H PRN for SHORTNESS OF BREATH, #1 INHALER 0 Refills 108 mcg/actuation Azithromycin (Azithromycin) 250 Mg Tab 250 MG PO DAILY for Infection, #1 TAB 0 Refills Budesonide-Formoterol Inh (Symbicort Inh) 80-4.5 Mcg/Act Aero 2 PUFF INH Q12HR for Asthma Management, #1 INHALER 0 Refills Insulin NPH Isophane-Reg (Human) 70-30 Inj (Humulin 70-30 Inj) 1,000 Unit/10 Ml Vial 10 UNITS SQ BIDAC for Blood Sugar Management, #1 VIAL Insulin Syringe/Needle U-100 (Bd Insulin Syringe Microf 28G X 1/2" 1 ml) 28 Gauge X 1/2" Mis BOX, #1 Levofloxacin (Levofloxacin) 750 Mg Tablet 750 MG PO DAILY for Infection, #10 TAB 0 Refills Prednisone (Prednisone) 10 Mg Tab 10 MG PO DIRECTED for bronchitis, #35 TAB 0 Refills 30 mg po daily x 5 days, 20 mg po daily x 5 days, 10 mg po daily x 5 days, 5 mg po daily x 5 days Rashid Castellon MD Nov 29, 2017 15:16
[2017-11-29] MEDS ORDERED: BD I1MIS14 (15:28)
[2017-11-29] MEDS ORDERED: HUMU70IN SQ (15:28)
[2017-11-29] MEDS ORDERED: AZITHROMYCIN 250 MG TAB PO ONE (15:30)
[2017-11-29 15:50] VITALS: BP 146/91; PULSE 78; RESP 20; TEMP 96.1; O2SAT 94
== END 2017-11-29 16:30 | disposition home or self-care (01) | DRG 194 ==
LOC: PHED 08:50 → PHEDA 12:06 → PH3A 13:58
PROVIDERS: ADMIT Hospitalist; ATTEND Hospitalist
DX: J18.9 Pneumonia, unspecified organism (principal); C85.99 Non-Hodgkin lymphoma, unspecified, extranodal and solid organ sites; N39.0 Urinary tract infection, site not specified; E10.65 Type 1 diabetes mellitus with hyperglycemia; E66.9 Obesity, unspecified; J45.909 Unspecified asthma, uncomplicated; Z68.34 Body mass index [BMI] 34.0-34.9, adult; Z79.4 Long term (current) use of insulin; Z88.0 Allergy status to penicillin; Z88.1 Allergy status to other antibiotic agents; Z88.2 Allergy status to sulfonamides
CPT/HCPCS: 71045; 71046; 71260; 80053; 81001; 82948; 83036; 83605; 83735; 84100; 84439; 84443; 85025; 87040; 87077; 87086; 87186; 87449; 87804; 94150; 94640; 94664; 96365; J1650; J1815; J1956; J2920; J7030; J7608; Q9967